=== PATIENT | male | born 1985 | race Caucasian/White ===

== ENCOUNTER 2018-08-21 18:31 | Emergency (ER) | payer BC ==
[2018-08-21 18:46] VITALS: BP 120/83; PULSE 113; O2SAT 97
--- NOTE | 2018-08-21 19:20 | ERPHSYRPT ---
- History of Present Illness Source: patient Exam Limitations: no limitations Patient Subjective Stated Complaint: Throat pain, white blisters in back of throat Triage Nursing Assessment: Pt presents with a sore throat with white blisters and swollen glands in the neck, went to his doctor yesterday and was told that it wasn't strep and was given Amoxicillin but he is worse today, can't eat and having difficulty with liquids, tachycardic, rates pain a 4/10 Physician History: Pt is a 32 y/o male with a h/o sore throat that presented to the ED today with same symptoms. Was was seen yesterday, and was placed on Amoxicillin, but he states, that the pain is worse, and there is no imprpovement. Pt denies cough or SOB. No F/C/S. No N/V/D or abdominal pain/. Pt denies sinus tenderness. Timing/Duration: abrupt onset Severity: moderate ENT Location: throat Prearrival Treatment: prescription meds (Amoxicillin) Modifying Factors: Improves With: nothing Allergies/Adverse Reactions: No Known Drug Allergies Allergy (Verified 08/21/18 18:46) Hx Tetanus, Diphtheria Vaccination/Date Given: No Hx Influenza Vaccination/Date Given: No Hx Pneumococcal Vaccination/Date Given: No - Review of Systems Constitutional: No Fever, No Chills Eyes: No Symptoms Ears, Nose, & Throat: Throat Pain Respiratory: No Cough, No Dyspnea Cardiac: No Chest Pain, No Edema, No Syncope Abdominal/Gastrointestinal: No Abdominal Pain, No Nausea, No Vomiting, No Diarrhea Musculoskeletal: No Back Pain, No Neck Pain Neurological: No Dizziness, No Focal Weakness, No Sensory Changes - Past Medical History Pertinent Past Medical History: No Neurological History: No Pertinent History ENT History: No Pertinent History Cardiac History: No Pertinent History Respiratory History: No Pertinent History Endocrine Medical History: No Pertinent History Musculoskeletal History: No Pertinent History GI Medical History: No Pertinent History History: No Pertinent History Psycho-Social History: No Pertinent History Male Reproductive Disorders: No Pertinent History - Past Surgical History Past Surgical History: No - Social History Smoking Status: Current every day smoker How long have you smoked: 5 Exposure to second hand smoke: Yes Drug Use: none Patient Lives Alone: Yes - Nursing Vital Signs Nursing Vital Signs: Initial Vital Signs Temperature 99.3 F 08/21/18 18:37 Pulse Rate 113 H 08/21/18 18:37 Blood Pressure 120/83 08/21/18 18:37 O2 Sat by Pulse Oximetry 97 08/21/18 18:37 Pain Scale Pain Intensity 4 - Physical Exam General Appearance: no apparent distress, alert Eye Exam: bilateral eye: PERRL, EOMI Ear Exam: bilateral ear: auricle normal, canal normal Nasal Exam: normal inspection Throat Exam: pharynx tenderness, tonsillar exudate (white exudates on both sides of tonsils.) Neck Exam: supple Cardiovascular/Respiratory Exam: normal breath sounds, regular rate/rhythm Abdominal Exam: non-tender, soft Neurologic Exam: alert, oriented x 3, sensation nml, No motor deficits SpO2 Interpretation: normal SpO2: 97 O2 Delivery: Room Air - Course Nursing assessment & vital signs reviewed: Yes - Progress Progress: unchanged Progress Note: 08/21/18 19:18 Pt was seen and examined. Pt does have white exudates on his tonsils. Pt states, no improvement wi8th Amoxicillin. Will switch pt to Augmentin, incase the pt has Nisseria. Pt should finish the treatment and f/u with his PCP. Will see patient in: office Counseled pt/family regarding: need for follow-up - Departure Departure Disposition: Home Clinical Impression: Tonsillar exudate Condition: Stable Critical Care Time: No Additional Instructions: Finish Augmentin and f/u with PCP. Prescriptions: Amoxicillin/Potassium Clav [Augmentin 875-125 Tablet] 1 each PO BID #20 tablet
== END 2018-08-21 19:24 | disposition home or self-care (01) ==
LOC: ED 18:31
DX: J35.8 Other chronic diseases of tonsils and adenoids (principal)
CPT/HCPCS: 99283

== ENCOUNTER 2018-09-29 03:24 | Emergency (ER) | payer BC ==
[2018-09-29 03:37] VITALS: O2SAT 95
[2018-09-29] MEDS ORDERED: PEROXIDE 3% ONE (03:54)
[2018-09-29] MEDS ORDERED: Augmentin 875-125 Tablet PO ONE (03:59)
[2018-09-29] MEDS ORDERED: Norco 10/325 MG Tablet PO ONE (04:00)
[2018-09-29] MEDS ORDERED: Augmentin 875-125 Tablet ONE (04:01)
[2018-09-29] MEDS ORDERED: Norco 10/325 MG Tablet ONE (04:05)
[2018-09-29] MEDS ORDERED: PEROXIDE 3% TOP PRN (04:13)
--- NOTE | 2018-09-29 04:18 | ERPHSYRPT ---
- History of Present Illness Time Seen by Provider: 09/29/18 03:44 Source: patient Exam Limitations: clinical condition Patient Subjective Stated Complaint: pt ambulated to er rm 8, alert and oriented x3, pleasant. Pt c/o pain to left ear. Pt states, "I went to the [facility] in [place] 3-4 days ago and they tried to clean it out and had me to get these gtts but the pain is so unbearable tonight, I can't sleep". Triage Nursing Assessment: pt aetox3, pleasant, cooperative. Lungs clear, heart tones reg. Pt c/o lt ear pain that is sharp and at times gets so intense "it makes my whole face hurt on the left side". Physician History: PATIENT COMPLAINS OF A LEFT EARACHE X 3-5 DAYS. HAD ATTEMPTED REMOVAL OF CERUMEN IN PRIMARY CARE PROVIDER OFFICE UNSUCCESSFUL, NOW COMPLAINS OF PERSISTENT LEFT EAR ACHING DISCOMFORT. Timing/Duration: gradual onset Severity: severe ENT Location: ear (L) Prearrival Treatment: prescription meds Modifying Factors: Improves With: other (TOUCHING EAR) Associated Symptoms: ear pain (L) Allergies/Adverse Reactions: No Known Drug Allergies Allergy (Verified 08/21/18 18:46) Hx Tetanus, Diphtheria Vaccination/Date Given: No Hx Influenza Vaccination/Date Given: No Hx Pneumococcal Vaccination/Date Given: No - Review of Systems Constitutional: No Symptoms Eyes: No Symptoms Ears, Nose, & Throat: Ear Pain Respiratory: No Symptoms Cardiac: No Symptoms Skin: No Symptoms Neurological: No Symptoms Psychological: No Symptoms Endocrine: No Symptoms - Past Medical History Pertinent Past Medical History: No Neurological History: No Pertinent History ENT History: No Pertinent History Cardiac History: No Pertinent History Respiratory History: No Pertinent History Endocrine Medical History: No Pertinent History Musculoskeletal History: No Pertinent History GI Medical History: No Pertinent History History: No Pertinent History Psycho-Social History: No Pertinent History Male Reproductive Disorders: No Pertinent History - Past Surgical History Past Surgical History: No - Social History Smoking Status: Current every day smoker How long have you smoked: 10 yrs Exposure to second hand smoke: Yes Drug Use: none Patient Lives Alone: Yes - Nursing Vital Signs Nursing Vital Signs: Initial Vital Signs Temperature 98.2 F 09/29/18 03:24 Pulse Rate 75 09/29/18 03:24 Respiratory Rate 18 09/29/18 03:24 Blood Pressure 125/95 09/29/18 03:24 O2 Sat by Pulse Oximetry 95 09/29/18 03:24 Pain Scale Pain Intensity 6 - Physical Exam General Appearance: no apparent distress Eye Exam: right eye: abnormal EOM, bilateral eye: normal inspection, PERRL Ear Exam: left ear: canal normal (MID LEFT CANAL SWELLING WITH ERYTHEMA, MARKED TENDERNES OVER TRAGUS OF LEFT AURICLE) Nasal Exam: normal inspection Throat Exam: normal, pharynx normal Cardiovascular/Respiratory Exam: chest non-tender, normal breath sounds, regular rate/rhythm SpO2: 95 Ordered Tests: Medication Summary Generic Name Dose Route Start Last Admin Trade Name Freq PRN Reason Stop Dose Admin Hydrocodone Bitart/Acetaminophen 2 tab 09/29/18 04:00 [place] 10/325 Mg Tablet PO 09/29/18 04:01 SENT HOME W/ PATIENT ONE Discontinued Medications Generic Name Dose Route Start Last Admin Trade Name Freq PRN Reason Stop Dose Admin Amoxicillin/Clavulanate Potassium 875 mg 09/29/18 03:59 Augmentin 875-125 Tablet PO 09/29/18 04:00 STAT ONE Hydrogen Peroxide Confirm 09/29/18 03:54 Peroxide 3% Administered 09/29/18 03:55 Dose 237 ml .ROUTE .[employer] - Progress Progress Note: 09/29/18 04:04 IRRIGATION WITH WARM TAP WATER WITH PEROXIDE, MODERATE REMOVAL OF CERUMEN, CANAL WITH MARKED ERYTHEMA TM WITH ERYTHEMA 09/29/18 04:18 Counseled pt/family regarding: diagnosis, need for follow-up - Departure Departure Disposition: Home Clinical Impression: LEFT OTITIS EXTERNA, LEFT OTITIS MEDIA, REMOVAL CERUMEN LEFT EAR Condition: Stable Critical Care Time: No Referrals: [facility] [Primary Care Provider] - Additional Instructions: ANTIBIOTIC AUGMENTIM 875MG TWICE DAILY FOR 10 DAYS. NORCO 10/325 EVERY 6 HOURS WHILE AT HOME. APPLY 3 DROPS CORTISPORIN OTIC SUSPENSION INTO LEFT EAR CANAL 4 TIMES DAILY FOR 7 DAYS. CONSULT YOUR PRIMARY CARE PROVIDER FOR FOLLOWUP IN 4-5 DAYS. Prescriptions: Hydrocodone/APAP 10/325 mg [Machipongo 10/325 MG Tablet] 1 tab PO Q6H PRN PRN # 10 tablet MDD 4 PRN Reason: Pain Amox Tr/Potass Clav. 875 mg [Augmentin 875-125 Tablet] 875 mg PO BID #20 tablet Neomy Sulf/Polymyx B Sulf/Hc [Cortisporin Ear Suspension] 3 drops OT QID 7 Days #1 drops.susp
[2018-09-29 04:25] VITALS: BP 132/78; PULSE 71
== END 2018-09-29 04:25 | disposition home or self-care (01) ==
LOC: ED 03:24
DX: H60.92 Unspecified otitis externa, left ear (principal); H66.92 Otitis media, unspecified, left ear; H61.22 Impacted cerumen, left ear; H92.02 Otalgia, left ear
CPT/HCPCS: 99283; A9270-GY